=== PATIENT | male | born 1930 | race Caucasian/White ===

== ENCOUNTER 2019-04-30 17:09 | Inpatient (IN) ==
--- NOTE | 2019-04-30 18:59 | XRay Report ---
SINGLE VIEW CHEST CLINICAL HISTORY: Atypical chest pain. FINDINGS: 2 AP, portable, upright chest radiographs are obtained. Correlation is made with CT of the neck dated 04/27/2019. The examination is degraded by portable technique and patient rotation. A larg e mass lesion is seen in the right lower neck and involving the superior mediastinum. This causes lef tward deviation of the trachea and was better characterized on the recent CT of the neck. The heart i s enlarged noting atherosclerotic calcification of the thoracic aorta. The pulmonary vasculature is n oncongested. No airspace consolidation or large pleural effusion is identified. No pneumothorax is se en. The skeletal structures are osteopenic. The bony thorax is grossly intact. IMPRESSION: 1. Cardiomegaly with no acute cardiopulmonary abnormality. 2. A large mass lesion is again seen in the right lower neck extending into the superior mediastinum. This was better characterized on the recent CT of the neck. Electronically signed by: Stephen Stringer M.D. 04/30/2019 6:57 PM
[2019-04-30 19:15] LABS: Basophils # (auto) 0.03 K/uL (0-0.2); Basophils % (auto) 0.4 %; Eosinophils # (auto) 0.19 K/uL (0-0.5); Eosinophils % (auto) 2.5 %; Hematocrit (blood only) 41.7 % (42-52); Hemoglobin 13.5 g/dL (14.0-18.0); Immature Granulocytes # (auto) 0.01 K/uL (0.00-0.02); Immature Granulocytes % (auto) 0.1 %; Lymphocytes # (auto) 2.12 K/uL (1.2-3.4); Lymphocytes % (auto) 27.4 %; Mean Corpuscular Hemoglobin 32.2 pg (25-34); Mean Corpuscular Hgb Conc 32.4 g/dL (32-36); Mean Corpuscular Volume 99.5 fL (80-100); Mean Platelet Volume 11.8 fL (7.4-10.4); Monocytes # (auto) 1.17 K/uL (0.11-0.59); Monocytes % (auto) 15.1 %; Neutrophils # (auto) 4.23 K/uL (1.4-6.5); Neutrophils % (auto) 54.5 %; Platelet Count 137 K/uL (130-400); RDW Coefficient of Variation 15.9 % (11.5-14.5); RDW Standard Deviation 57.4 fL (36.4-46.3); Red Blood Count 4.19 M/uL (4.7-6.1); White Blood Count 7.75 K/uL (4.8-10.8)
[2019-04-30 19:25] LABS: INR 1.4 (0.9-1.1); Partial Thromboplastin Ratio 1.1; Partial Thromboplastin Time 28.5 Seconds (21.0-31.0); Prothrombin Time 14.3 Seconds (9.0-12.0)
[2019-04-30 19:32] LABS: Alanine Aminotransferase 25 U/L (12-78); Albumin Level 3.3 gm/dl (3.4-5.0); Aspartate Aminotransferase 36 U/L (15-37); BUN Creatinine Ratio 29.8 (10-20); Blood Urea Nitrogen 33 mg/dl (7-18); Calcium 8.7 mg/dl (8.5-10.1); Carbon Dioxide 28 mmol/L (21-32); Chloride 108 mmol/L (98-107); Est GFR (African American) 70.9; Est GFR (Non-African American) 61.1; Glucose 89 mg/dl (70-99); Lipase 64 U/L (73-393); Potassium 4.2 mmol/L (3.5-5.1); Sodium 140 mmol/L (136-145)
[2019-04-30 19:37] LABS: Albumin Globulin Ratio 1.1 (0.9-2); Alkaline Phosphatase 91 U/L (45-117); Bilirubin,Total 0.6 mg/dl (0.2-1); Globulin 3.1 gm/dl (2.5-4.0); Total Protein 6.4 gm/dl (6.4-8.2); Troponin I < 0.015 ng/ml (0-0.045)
--- NOTE | 2019-04-30 19:56 | Emergency Department Note ---
Entered by Tiffanie Case acting as a scribe for History of Present Illness General Chief complaint: Shoulder Pain Stated complaint: R SHOULDER PAIN, R ARM PAIN Time Seen by Provider: 04/30/19 18:15 Source: patient and family () History of Present Illness Onset (ago): month(s) (1) Location: upper extremity (shoulder) and right Radiation: other (right arm) Pain Consistency: + constant Maximum Pain Intensity: 9 Associated symptoms: + other (mass in his neck, right arm swelling) The patient is a 88 year old male who presents to the Emergency Room with complaints of constant right shoulder pain beginning one month ago. He reports the pain extending into his right arm and notes right arm swelling for the past week. The patient reports a mass in his neck for about a year. The patient's states she spoke with the patient's PCP, Dr. Dodd, who wants the patient admitted to the hospital due to cancer. She reports that the patient has had blood work, an MRI, and a biopsy within the last several days. Home Medications Home Medications Medication Instructions Recorded Confirmed Type doxazosin [Cardura] 1 mg PO DAILY 04/27/19 04/30/19 History hydrocodone-acetaminophen [Lorcet 1 tab PO Q6 PRN 04/27/19 04/30/19 History (hydrocodone)] levothyroxine 88 mcg PO DAILY 04/27/19 04/30/19 History memantine [Namenda] 10 mg PO BID 04/27/19 04/30/19 History Allergies Allergy/AdvReac Type Severity Reaction Status Date / Time No Known Allergies Allergy Unverified 04/30/19 18:48 Past Med/Surg History Medical History Mass of lateral neck (Acute) Dementia (Chronic) Thyroid disorder (Chronic) Surgical History No pertinent past surgical history Family History Other Family history non-contributory Social History marital status: Current Living Situation: Spouse current occupational status: retired Feels Safe at Home: Yes Smoking Status: Former smoker Review of Systems See HPI for pertinent positives & negatives. and A total of 10 systems reviewed and were otherwise negative Physical Exam Vital Signs Vital Signs - 24 hr 04/30/19 17:16 04/30/19 19:02 04/30/19 19:09 Temperature 36.7 C Temperature Source Oral Sepsis Recent Fever Within 48 Hours No Sepsis Action Taken by Nursing No Action Required Pulse Rate 74 57 L Respiratory Rate 20 12 Respiratory Effort / Characteristics Non-Labored Spontaneous Respiratory Depth Normal Blood Pressure 105/68 Blood Pressure Mean 80 Blood Pressure Position Sitting Pulse Oximetry 93 Oxygen Delivery Method Room Air Room Air 04/30/19 19:57 04/30/19 20:00 Temperature Temperature Source Sepsis Recent Fever Within 48 Hours Sepsis Action Taken by Nursing Pulse Rate 57 L 57 L Respiratory Rate 12 10 L Respiratory Effort / Characteristics Respiratory Depth Blood Pressure 126/70 Blood Pressure Mean 88 Blood Pressure Position Pulse Oximetry Oxygen Delivery Method CONSTITUTIONAL/VITAL SIGNS: Reviewed / noted above. GENERAL: Non-toxic in appearance. INTEGUMENTARY: Warm, dry, and [place]. HEAD: Normocephalic. EYES: without scleral icterus or trauma. ENT/OROPHARYNX: clear and moist. LYMPHADENOPATHY/NECK: Large mass in right neck. Supple without lymphadenopathy or meningismus. RESPIRATORY: Lungs clear and equal. CARDIOVASCULAR: Regular rate and rhythm. GI/ABDOMEN: Soft and nontender. No organomegaly or pulsatile mass. No rebound or guarding. Normal bowel sounds. EXTREMITIES: Warm and well perfused. Edema in the right arm, distal pulses intact. BACK: No CVA tenderness. NEUROLOGICAL: Intact without focal deficits. PSYCHIATRIC: normal affect. MUSCULOSKELETAL: Normally developed with good muscle tone. Course 1814: Past medical records reviewed. The patient was evaluated in room C01. A complete history and physical exam was performed. 2000: Upon reevaluation, I discussed findings and results with the patient and his family. They verbalized agreement of the treatment plan. I spoke with Dr. Martinez of the [facility]. The patient will be evaluated for further management and care. Medical Decision Making Differential Diagnosis Diferential diagnosis include DVT, vascular obstruction related to tumor, infection, cancer, arterial obstruction Medical Records Attestation: I reviewed the patient's medical records. Home Medications Current Medication List: was personally reviewed by me Laboratory Data Attestation: I reviewed the patient's lab results. Result diagrams: 04/30/19 19:02 04/30/19 19:02 Lab Results 04/30/19 04/30/19 04/30/19 Range/Units 19:02 19:02 19:02 WBC 7.75 (4.8-10.8) K/uL RBC 4.19 L (4.7-6.1) M/uL Hgb 13.5 L (14.0-18.0) g/dL Hct 41.7 L (42-52) % MCV 99.5 (80-100) fL MCH 32.2 (25-34) pg MCHC 32.4 (32-36) g/dL RDW Std Deviation 57.4 H (36.4-46.3) fL RDW Coeff of Rosie 15.9 H (11.5-14.5) % Plt Count 137 (130-400) K/uL MPV 11.8 H (7.4-10.4) fL Immature Gran % (Auto) 0.1 % Neut % (Auto) 54.5 % Lymph % (Auto) 27.4 % [place] % (Auto) 15.1 % Eos % (Auto) 2.5 % Baso % (Auto) 0.4 % Immature Gran # (Auto) 0.01 (0.00-0.02) K/uL Neut # (Auto) 4.23 (1.4-6.5) K/uL Lymph # (Auto) 2.12 (1.2-3.4) K/uL [place] # (Auto) 1.17 H (0.11-0.59) K/uL Eos # (Auto) 0.19 (0-0.5) K/uL Baso # (Auto) 0.03 (0-0.2) K/uL PT 14.3 H (9.0-12.0) Seconds INR 1.4 H (0.9-1.1) APTT 28.5 (21.0-31.0) Seconds PTT Ratio 1.1 Sodium 140 (136-145) mmol/L Potassium 4.2 (3.5-5.1) mmol/L Chloride 108 H (98-107) mmol/L Carbon Dioxide 28 (21-32) mmol/L Anion Gap 4.0 (3-11) BUN 33 H (7-18) mg/dl Creatinine 1.09 (0.6-1.4) mg/dl Est Cr Clr Drug Dosing Not Reportable Est GFR ( Amer) 70.9 Est GFR (Non-Af Amer) 61.1 BUN/Creatinine Ratio 29.8 H (10-20) Glucose 89 (70-99) mg/dl Calcium 8.7 (8.5-10.1) mg/dl Total Bilirubin 0.6 (0.2-1) mg/dl AST 36 (15-37) U/L ALT 25 (12-78) U/L Alkaline Phosphatase 91 (45-117) U/L Troponin I < 0.015 (0-0.045) ng/ml Total Protein 6.4 (6.4-8.2) gm/dl Albumin 3.3 L (3.4-5.0) gm/dl Globulin 3.1 (2.5-4.0) gm/dl Albumin/Globulin Ratio 1.1 (0.9-2) Lipase 64 L (73-393) U/L Imaging Data Radiologist's Impression: Radiology results as stated below per my review and the radiologist's interpretation: SINGLE VIEW CHEST CLINICAL HISTORY: Atypical chest pain. FINDINGS: 2 AP, portable, upright chest radiographs are obtained. Correlation is made with CT of the neck dated 04/27/2019. The examination is degraded by portable technique and patient rotation. A large mass lesion is seen in the right lower neck and involving the superior mediastinum. This causes leftward deviation of the trachea and was better characterized on the recent CT of the neck. The heart is enlarged noting atherosclerotic calcification of the thoracic aorta. The pulmonary vasculature is noncongested. No airspace consolidation or large pleural effusion is identified. No pneumothorax is seen. The skeletal structures are osteopenic. The bony thorax is grossly intact. IMPRESSION: 1. Cardiomegaly with no acute cardiopulmonary abnormality. 2. A large mass lesion is again seen in the right lower neck extending into the superior mediastinum. This was better characterized on the recent CT of the neck. Electronically signed by: Stephen Stringer M.D. 04/30/2019 6:57 PM ECG Data Attestation: I personally reviewed and interpreted this ECG as follows: Indication: other (arm swelling) Rate (beats per minute): 59 Rhythm: sinus bradycardia Findings: no PAC, no PVC, no ST elevation and no ectopy Blood Pressure Blood Pressure Findings: Low blood pressure Blood Pressure Disposition: further management by hospitalist MDM Narrative This is an 88-year-old male who presents to the ED with a chief complaint of right arm swelling and mass in his right neck. The patient had a CT scan of his neck on the here that showed a large mass that is likely lymphoma. It appears to obstruct the vasculature of the right arm. His physical exam is consistent with this as it shows edema to the right arm in addition to a obvious large mass of the right neck. The patient himself reports that this mass has been growing over the past year or so. The patient's states that he developed increased edema in his right arm just over the past week or 2. The patient was seen by Dr. Dodd earlier today. 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 The patient was sent here for admission for further work-up and evaluation and possible treatment options. The patient's EKG here shows a sinus bradycardia at a rate of 59. Chemistry panel reveals a BUN of 33 is otherwise unremarkable. Troponin was negative. Chest x-ray reveals a mass in the right lower neck that extends in the mediastinum that is better evaluated with the CT scan of the neck. An ultrasound was performed on the arm. The results are yet pending. I spoke with the hospitalist about the patient. He will be seeing the patient for further inpatient evaluation and care. Impression & Plan Mass of lateral neck, Arm edema, Lymphoma Discharge Plan Visit Data Chief Complaint: Shoulder Pain Stated Complaint: R SHOULDER PAIN, R ARM PAIN ED Provider: Shane Candelario Discharge Problem: Mass of lateral neck, Arm edema, Lymphoma Patient Disposition: Being Evaluated by Hospitalist Forms Stand Alone Forms: [facility] Prescriptions Prescriptions: No Action hydrocodone-acetaminophen [Lorcet (hydrocodone)] 5-325 mg tablet 1 tab PO Q6 PRN (Reason: Pain) RF: 0 doxazosin [Cardura] 1 mg tablet 1 mg PO DAILY RF: 0 levothyroxine 88 mcg tablet 88 mcg PO DAILY RF: 0 memantine [Namenda] 10 mg tablet 10 mg PO BID RF: 0 Referrals Referrals: Solomon Manrique DO [Primary Care Provider] - Discharge Problem: Lymphoma Qualifiers: Lymphoma type: unspecified type Lymphoma site: neck Qualified Code(s): 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 I confirm that the note above accurately reflects all work, treatment, procedures, and medical decision making performed by me.
--- NOTE | 2019-04-30 20:18 | Ultrasound Report ---
ULTRASOUND RIGHT UPPER EXTREMITY VENOUS CLINICAL HISTORY: Right arm swelling. COMPARISON STUDY: CT of the neck dated 04/27/2019. TECHNIQUE: Real-time, grayscale, and color Doppler sonography of the deep veins of the right upper ex tremity is performed. Compression and augmentation were utilized. FINDINGS: The right internal jugular vein is thrombosed. Occlusive deep venous thrombosis is identif ied within the right subclavian vein which extends in the cephalic vein. Nearly occlusive thrombus is also seen within the right axillary vein. The brachial vein and the basilic vein are patent. The rad ial and ulnar veins are clear. A large soft tissue mass is noted in the right lower neck and superior mediastinum. IMPRESSION: 1. A large mass lesion is again seen in the right lower neck end superior mediastinum. 2. There is thrombosis of the right internal jugular vein, the right subclavian vein, and the right a xillary vein. This is unchanged from the recent CT scan. 3. Superficial venous thrombus is noted within the cephalic vein. Electronically signed by: Stephen Stringer M.D. 04/30/2019 8:17 PM
[2019-04-30 20:54] LABS: Uric Acid 6.5 mg/dl (2.6-7.2)
[2019-04-30] MEDS ORDERED: IOVERSOL 100ml IV PRN (21:21)
--- NOTE | 2019-04-30 21:45 | History and Physical Report ---
DATE OF ADMISSION: 04/30/2019 CHIEF COMPLAINT: Right neck mass and swelling of the right upper extremity. HISTORY OF PRESENT ILLNESS: This is an 88-year-old male with past medical history significant for hypothyroidism, benign neoplasm of colon, BPH, glaucoma both eyes, mild dementia, was brought in because of right neck mass and right upper extremity swelling. The patient was here in the ER on 04/27/2019. At that time, the thought that they saw the mass 2 weeks ago, but the patient states this mass is there for last 6 months and also swelling in the right upper extremity for 6 months. He has some pain in the shoulder region. CT scan of the neck showed large conglomerate mass centered in the right supraclavicular region which extends up into the upper mediastinum, right pleura and right neck measuring 4.8 x 8.2 x 7.2 cm. The mass occludes the right internal jugular, subclavian and brachiocephalic veins and markedly narrows the left brachiocephalic vein, also there is right pleural effusion. Mass invades the right thyroid lobe with probable extension several right-sided neural foramen and foramen transversarium for the right vertebral artery which remains patent consistent with a neoplastic process or lymphoma . 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 The family also wanted to get him admitted in the hospital. The patient has some dementia. He knows his name, knows he is in the hospital, can tell his date of , but does not know today's date. Currently, no one is in the room. I tried to call his , the told to call the daughter. Daughter came to the hospital later. Says he is eating okay. He ambulates with a cane. Denies any headache, denies any chest pain. Denies any belly pain, no nausea, no vomiting. Normal bowel and bladder movements. No cough, no fever. Currently, resting comfortable and hemodynamically stable. ALLERGIES: No known drug allergies. PAST MEDICAL HISTORY: As mentioned above. PAST SURGICAL HISTORY: Colonoscopy, hemorrhoidectomy, cataract surgeries, tonsillectomy, adenoidectomy. MEDICATIONS: The patient is on hydrocodone/acetaminophen 5/325 mg one tablet every 6 hours p.r.n. for pain, Cardura 1 mg p.o. daily, Namenda 10 mg p.o. b.i.d., levothyroxine 88 mcg p.o. daily. FAMILY HISTORY: Significant for father had testicular cancer and Alzheimer's. Mother had CABG and diabetes. SOCIAL HISTORY: Former smoker, quit in 1979, smoked average of 0.1 pack a day for 20 years. Currently, no alcohol, no drug use. REVIEW OF SYSTEMS: As per HPI. Rest of review of symptoms is negative, but could not able to get detailed history as patient has some dementia. PHYSICAL EXAMINATION: GENERAL: The patient is old and frail, not in acute distress. VITAL SIGNS: Temperature 36.7, pulse 57, respiratory rate 20, blood pressure 126/70, oxygen 93% on room air. HEENT: No pallor, no icterus. Pupils equal, round, and reactive to light. NECK: Right sided neck mass seen which was somewhat fixed. No tenderness on palpation. Neck is supple. CARDIOVASCULAR: S1, S2 heard, regular rate and rhythm, no murmur, no gallop. RESPIRATORY SYSTEM: Normal AP diameter normal. No accessory muscle use. No wheezing, no crackles. ABDOMEN: Soft, bowel sounds present, nontender. No distention. CENTRAL NERVOUS SYSTEM: Alert and oriented x2. Obeys commands. Moves extremities. EXTREMITIES: No edema, no erythema. LABORATORY DATA: WBC 7.7, hemoglobin 13.5, hematocrit 41.7, platelets 137. PT 14.3, INR 1.4, APTT 28.1. Sodium 140, potassium 4.2, chloride 108, bicarbonate 28, BUN 33, creatinine 1.09, serum glucose 89, calcium 8.7, total bilirubin 0.6, AST 36, ALT 25, alkaline phosphatase 91. Troponin I less than 0.015. Albumin 3.3, lipase 64. IMAGING: Chest x-ray: Cardiomegaly with no acute cardiopulmonary abnormality. A large mass lesion is again seen in the right lower neck extending in superior mediastinum. Venous Doppler of the right upper extremity, large mass seen against the right lower neck and superior mediastinum. There is a thrombosed right internal jugular, subclavian and right axillary vein. This is unchanged from recent CT scan. Superficial venous thrombus is noted within the cephalic vein. EKG: Sinus bradycardia at a rate of 59, no acute ST changes seen. ASSESSMENT AND PLAN: This is an 88-year-old male who presents with right neck mass and right upper extremity swelling. 1. 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 Discussed with Oncology. We are also ordering LDH and uric acid levels. If uric acid level is significantly high, plan to transfer to [place], otherwise wait for the final pathology report and may need chemo and radiation and may need to start the treatment at [place], at that time. We will keep the patient in the hospital. Pain control and monitor the labs. We will also get CT of the chest and CT of abdomen and pelvis. Follow the results. 2. Right upper extremity swelling secondary to above and also ultrasound showing thrombosis. Will start on iv heparin and monitor. 3. History of benign prostatic hypertrophy. Continue his home Cardura. 4. Hypothyroidism. Continue Synthroid. 5. Dementia. Continue Namenda. 6. Deep venous thrombosis prophylaxis, IV heparin. 7. Disposition. Closely monitor in the medical floor. CODE STATUS: DNR as per the records, But daughter who is POA with his ok for full code if chance of recovery. MTDD
--- NOTE | 2019-04-30 21:52 | CT Scan Report ---
CT SCAN OF THE CHEST, ABDOMEN, AND PELVIS WITH IV CONTRAST CLINICAL HISTORY: Neck mass. COMPARISON STUDY: Chest x-ray dated 04/30/2019. CT of the neck dated 04/27/2019. TECHNIQUE: Following the IV administration of 92 of Optiray 320, CT scan of the chest, abdomen, and p melly was performed from the thoracic inlet to the proximal femora. Images are reviewed in the axial, sagittal, and coronal planes. IV contrast was administered without complication. A dose lowering t echnique was utilized adhering to the principles of ALARA. The examination is degraded by motion bereket fact, as well as by streak artifact from the right arm which could not be elevated above the chest or abdomen. CT DOSE: 482.49 mGy.cm FINDINGS: CHEST: Lower neck: A large mass lesion is again seen within the right supraclavicular region. This encases m ultiple vascular structures, invades the right lobe of the thyroid gland, and extends in the superior mediastinum. This encases and occludes the right internal jugular vein, the right subclavian vein, a nd the right innominate vein. There is marked narrowing of the left innominate vein which remains pat ent. This measures over 15 cm in maximum length. See report of neck CT dated 04/27/2019 for detailed discussion of the neck lesion. Thyroid: The right thyroid lobe is enlarged and heterogeneous. There is a 2.7 cm low-attenuation mass lesion in the right lobe, likely representing direct invasion from the neck mass. Thoracic aorta: There is mild atherosclerotic calcification of the thoracic aorta, which is normal in caliber and demonstrates standard 3-vessel arch anatomy. No dissection is seen. The mass lesion enca ses the right common carotid artery and the right subclavian artery which are widely patent. Pulmonary vasculature: The pulmonary trunk is normal in caliber. There are no filling defects identif ied in the central pulmonary vessels to indicate pulmonary embolus. Note that this examination was no t protocoled for evaluation of the pulmonary arteries. Heart: The heart is enlarged and without pericardial effusion. The coronary arteries are densely calc ified. Lungs and pleural spaces: Evaluation of the lung parenchyma is significantly degraded by motion artif act. There are small right and trace left pleural effusions with associated atelectasis. No airspace consolidation is seen typical for pneumonia. There are scattered calcified granulomas. There is pleur al extension of the right neck mass at the right apex. There is leftward deviation of the trachea. Th e trachea is patent. Secretions are noted in the right mainstem bronchus. Mediastinum: As above, a large mass in the right lower neck extends in the superior mediastinum. No m ediastinal adenopathy is seen. Dora: There are calcified hilar nodes. No hilar adenopathy is seen. Axillae: There is no axillary lymphadenopathy. Bony thorax: The skeletal structures are osteopenic. Degenerative change and mild hyperkyphosis are n oted in the thoracic spine. No lytic or blastic lesions are identified. This mass lesion in the neck likely encroaches on the right neural foramina in the lower cervical spine and at T1-T2. There is no CT evidence of encroachment upon the central spinal canal. Soft tissues: The patient is cachectic. ABDOMEN AND PELVIS: Liver: Evaluation of the liver is significantly degraded by streak artifact. The contrast-enhanced li lizbeth is normal in size, contour, and attenuation. There is no intrahepatic or ductal dilatation. The h epatic veins and portal veins are patent. Scattered cysts measure up to 1.[address] hepatic hypodensities also likely represent cysts but are too small for definitive characterizati on. Gallbladder: Unremarkable. Spleen: The spleen is diminutive, measuring up to 4.2 cm. Pancreas: Atrophic and grossly unremarkable. Adrenal glands: Unremarkable. Kidneys: The contrast enhanced kidneys demonstrate cortical atrophy and are without hydronephrosis. T he kidneys enhance symmetrically. Scattered subcentimeter hepatic hypodensities likely represent cyst s but are too small for definitive characterization. Abdominal vasculature: The abdominal aorta is normal in course and caliber noting mild to moderate at herosclerotic calcification. Bowel: There is moderate constipation. No bowel obstruction is seen. The appendix is not identified a nd reported surgically absent. Peritoneum: There is no intraperitoneal free air or abdominal ascites. Lymphadenopathy: None. Pelvic viscera: The prostate gland is mildly enlarged and heterogeneous noting median lobe hypertroph y. The bladder wall is thickened and trabeculated indicating chronic outlet obstruction. Small bladde r calculi are noted. Skeletal structures: The skeletal structures are osteopenic. No lytic or blastic lesions are seen. Th ere is moderate lumbosacral spondylosis. Advanced arthritic change is seen in the hips. IMPRESSION: 1. Streak and motion compromised examination. 2. There is a large mass lesion in the right lower neck with extensive local invasion into the superi or mediastinum, the pleural space at the right apex, several right-sided neural foramina, and the rig ht thyroid lobe. See report of CT of the neck dated 04/27/1940 detailed findings. 3. The mass lesion encases and occludes several venous structures as above. 4. There are small right and trace left pleural effusions with associated atelectasis. 5. Cardiomegaly. 6. There is no evidence of metastatic disease in the abdomen or pelvis. 7. Moderate constipation. 8. Bladder calculi. 9. Additional findings as above. Electronically signed by: Stephen Stringer M.D. 04/30/2019 9:50 PM
[2019-04-30] MEDS ORDERED: POLYETHYLENE (MIRALAX) 17 GM PACK PO PRN (22:15)
[2019-04-30] MEDS ORDERED: ACETAMINOPHEN 325 MG TAB PO PRN (22:15)
[2019-04-30] MEDS ORDERED: ONDANSETRON INJ 2 MG/ML 2 ML VIAL IV PRN (22:15)
[2019-04-30] MEDS ORDERED: HYDROCODONE/ACETAMOPHEN 5/325MG TAB PO PRN (22:30)
[2019-04-30] MEDS ORDERED: ENOXAPARIN INJ 40 MG/0.4 ML SYR SQ ONE (22:45)
[2019-04-30] MEDS: MEMANTINE HCL 10 MG TAB PO SCH (23:33)
[2019-04-30] MEDS: PATIENT'S HEIGHT AND/OR WEIGHT NEEDED SCH ×2 (23:36→23:49)
[2019-05-01] MEDS ORDERED: HEPARIN SODIUM/DEXTROSE 25,000 UNITS/500 ML BAG IV SCH (01:30)
[2019-05-01] MEDS: Heparin IV Standard *NO* Bolus IV SCH ×6 (02:46→15:32)
[2019-05-01 03:41] LABS: INR 1.6 (0.9-1.1); Partial Thromboplastin Ratio 1.3; Partial Thromboplastin Time 36.2 Seconds (21.0-31.0); Prothrombin Time 15.9 Seconds (9.0-12.0)
[2019-05-01 03:47] LABS: BUN Creatinine Ratio 33.2 (10-20); Calcium 8.2 mg/dl (8.5-10.1); Creatinine Clr Calc Pharmacy 52.7 ml/min; Est GFR (African American) 93.8; Est GFR (Non-African American) 80.9; Potassium 3.9 mmol/L (3.5-5.1)
[2019-05-01 03:54] LABS: Basophils # (auto) 0.03 K/uL (0-0.2); Basophils % (auto) 0.4 %; Eosinophils # (auto) 0.29 K/uL (0-0.5); Eosinophils % (auto) 3.6 %; Giant Platelets 1+; Hematocrit (blood only) 39.7 % (42-52); Hemoglobin 12.8 g/dL (14.0-18.0); Immature Granulocytes # (auto) 0.01 K/uL (0.00-0.02); Immature Granulocytes % (auto) 0.1 %; Lymphocytes # (auto) 2.33 K/uL (1.2-3.4); Lymphocytes % (auto) 28.7 %; Mean Corpuscular Hemoglobin 31.8 pg (25-34); Mean Corpuscular Hgb Conc 32.2 g/dL (32-36); Mean Corpuscular Volume 98.5 fL (80-100); Mean Platelet Volume 12.3 fL (7.4-10.4); Monocytes # (auto) 1.08 K/uL (0.11-0.59); Monocytes % (auto) 13.3 %; Neutrophils # (auto) 4.39 K/uL (1.4-6.5); Neutrophils % (auto) 53.9 %; Platelet Count 124 K/uL (130-400); Platelet Estimate Normal (Normal); RDW Coefficient of Variation 15.9 % (11.5-14.5); RDW Standard Deviation 57.1 fL (36.4-46.3); Red Blood Count 4.03 M/uL (4.7-6.1); White Blood Count 8.13 K/uL (4.8-10.8)
[2019-05-01] MEDS: LEVOTHYROXINE SODIUM 88 MCG TABLET PO SCH (05:46)
[2019-05-01] MEDS ORDERED: ACETAMINOPHEN 325 MG TAB PO PRN (07:47)
[2019-05-01] MEDS: MEMANTINE HCL 10 MG TAB PO SCH ×2 (08:20→21:04)
[2019-05-01] MEDS: DOXAZOSIN MESYLATE 1 MG TAB PO SCH (08:20)
--- NOTE | 2019-05-01 08:48 | Hospitalist Progress Note ---
Date of Service May 01, 2019 Subjective Daughter Ph No: [phone] Results & Data Vital Signs (Past 12 Hours) Vital Signs Temp Pulse Resp BP BP Pulse Ox 05/01/19 07:18 36.7 C 60 16 134/64 95 04/30/19 23:29 36.4 C L 59 L 18 150/77 H 93 04/30/19 22:16 36.8 C 60 20 155/79 H 94
[2019-05-01 09:53] LABS: Partial Thromboplastin Ratio 2.5
[2019-05-01 09:55] LABS: Partial Thromboplastin Time 66.4 Seconds (21.0-31.0)
--- NOTE | 2019-05-01 13:59 | Hospitalist Progress Note ---
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 Overall, a pure lymphomatous process is favored. Core biopsy or incisional biopsy (preferred) is required for further characterization of this unusual lesion. A high grade B-cell lymphoma FISH panel is pending for hopefully additional information and will be reported" -discussed with [facility] oncologist Dr. Shin Sotelo on 05/01/19 -will try to ask inpatient surgical consult services such as ENT service if core or incisional biopsy can be performed in hospital -patient does not appear to have respiratory compromise and breathing comfortable on room air and no apparent swallowing issues. 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 This is unchanged from the recent CT scan. -Superficial venous thrombus is noted within the cephalic vein and associated with right arm swelling -patient was started on heparin drip, to be transitioned from heparin drip to Lovenox 1 mg/kg every 12 hours for now while awaiting whether ENT services can be done as inpatient for core or incisional biospy of the neck Hypothyroidism -continue home dose Levothyroxine 88 mcg daily History of benign prostatic hypertrophy -Continue home Cardura. History of dementia -continue Namenda -Daughter Lorraine ([phone]) reported to hospitalist and piano case maker that she would like to have patient placed to nursing facility after hospital stay Subjective Patient laying in the bed. speaking in full sentences. breathing on room air. he needed assistance to sit up for posterior auscultation. right arm swelling but no acute pain. no chest pain. no abdomen pain. no vomiting. no headache. Physical Exam Constitutional: comfortable Eyes: PERRL, conjunctivae normal, anicteric sclerae EOM intact bilaterally ENMT: external ear and nose normal, oropharynx normal Neck: Thyroid: + thyroid mass (right neck mass that is firm and hard) Respiratory: normal respiratory effort, lungs clear to auscultation Cardiovascular: RRR, no murmur, no edema Gastrointestinal (Abdomen): normal bowel sounds, soft, nontender, no hepatosplenomegaly Musculoskeletal: Extremities: + upper extremity abnormal to inspection (right upper extremity swelling) Neurologic: PERRL, EOMI, accommodation nl, no face palsy, no dysarthria Psychiatric: Orientation: alert and cooperative Results & Data Vital Signs (Past 12 Hours) Vital Signs Temp Pulse Resp BP Pulse Ox 05/01/19 07:18 36.7 C 60 16 134/64 95 (1) Lymphoma Lymphoma site: neck Lymphoma type: unspecified type Qualified Code(s): C85.91 - Non-Hodgkin lymphoma, unspecified, lymph nodes of head, face, and neck
[2019-05-01] MEDS: ENOXAPARIN INJ 60 MG/0.6 ML SYR SQ SCH ×2 (14:19→21:05)
[2019-05-01] MEDS: QUETIAPINE FUMARATE 25 MG TABLET PO PRN (21:04)
[2019-05-01] MEDS ORDERED: ENOXAPARIN INJ 40 MG/0.4 ML SYR SQ SCH (22:00)
[2019-05-02 03:12] LABS: Basophils # (auto) 0.03 K/uL (0-0.2); Basophils % (auto) 0.3 %; Eosinophils # (auto) 0.35 K/uL (0-0.5); Eosinophils % (auto) 3.8 %; Hemoglobin 12.1 g/dL (14.0-18.0); Immature Granulocytes # (auto) 0.02 K/uL (0.00-0.02); Immature Granulocytes % (auto) 0.2 %; Lymphocytes # (auto) 2.53 K/uL (1.2-3.4); Lymphocytes % (auto) 27.1 %; Mean Corpuscular Hemoglobin 31.3 pg (25-34); Mean Corpuscular Hgb Conc 31.8 g/dL (32-36); Mean Corpuscular Volume 98.4 fL (80-100); Mean Platelet Volume 11.2 fL (7.4-10.4); Monocytes # (auto) 1.24 K/uL (0.11-0.59); Monocytes % (auto) 13.3 %; Neutrophils # (auto) 5.16 K/uL (1.4-6.5); Neutrophils % (auto) 55.3 %; Platelet Count 132 K/uL (130-400); RDW Coefficient of Variation 15.7 % (11.5-14.5); RDW Standard Deviation 56.8 fL (36.4-46.3); Red Blood Count 3.86 M/uL (4.7-6.1); White Blood Count 9.33 K/uL (4.8-10.8)
[2019-05-02 03:33] LABS: Albumin Level 2.7 gm/dl (3.4-5.0); BUN Creatinine Ratio 28.8 (10-20); Calcium 7.9 mg/dl (8.5-10.1); Creatinine Clr Calc Pharmacy 43.9 ml/min; Est GFR (African American) 82.6; Est GFR (Non-African American) 71.3; Potassium 3.9 mmol/L (3.5-5.1)
[2019-05-02 03:43] LABS: Bilirubin,Total 0.5 mg/dl (0.2-1); Globulin 2.7 gm/dl (2.5-4.0); Thyroid Stimulating Hormone 2.24 uIu/ml (0.300-4.500); Total Protein 5.4 gm/dl (6.4-8.2)
[2019-05-02] MEDS: LEVOTHYROXINE SODIUM 88 MCG TABLET PO SCH (06:49)
[2019-05-02] MEDS: DOXAZOSIN MESYLATE 1 MG TAB PO SCH (08:48)
[2019-05-02] MEDS: MEMANTINE HCL 10 MG TAB PO SCH ×2 (08:48→21:15)
[2019-05-02] MEDS: ENOXAPARIN INJ 60 MG/0.6 ML SYR SQ SCH ×2 (10:05→21:15)
--- NOTE | 2019-05-02 10:20 | Hospitalist Progress Note ---
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 Overall, a pure lymphomatous process is favored. Core biopsy or incisional biopsy (preferred) is required for further characterization of this unusual lesion. A high grade B-cell lymphoma FISH panel is pending for hopefully additional information and will be reported" -discussed with [facility] oncologist Dr. Shin Sotelo on 05/01/19 -Dr. Carlson from [facility] ENT services asked to evaluate the patient in hospital. Patient did not give consent to Dr. Carlson for biopsy. 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 This is unchanged from the recent CT scan. -Superficial venous thrombus is noted within the cephalic vein and associated with right arm swelling -patient was started on heparin drip, and transitioned from heparin drip to Lovenox 1 mg/kg every 12 hours starting on 05/02/19 -continue Lovenox 60 mg q12 hours Hypothyroidism -continue home dose Levothyroxine 88 mcg daily History of benign prostatic hypertrophy -Continue home Cardura. History of dementia -continue Namenda -behavioral health consult requested to evaluate medical decision making capacity in context of dementia which the patient's daughter also agrees to -Daughter Lorraine ([phone]) is power of commercial attorney and reported to hospitalist and telehealth case manager that she would like to have patient placed to nursing facility after hospital stay on Friday05/01/19 -after further discussions with patient's daughter on patient's limited cooperation in regards to making the diagnosis, and of the potential side effects of radiation or chemotherapy treatments in this elderly gentleman with invasive neck cancer, hospitalist discussed about potential palliative care evaluations in case of need for hospice. Patient's daughter and family members will plan on coming on 05/02/19 to discuss with physician and patient in person. Subjective Patient reports good sleep. breathing on room air. he was able to eat his meals. no swallowing issues reported. denies acute pain. no chest pain. no abdominal pain. no vomiting. patient was explained about Lovenox injections to prevent arm swelling from getting worse. Physical Exam Constitutional: comfortable Eyes: PERRL, conjunctivae normal, anicteric sclerae EOM intact bilaterally ENMT: external ear and nose normal, oropharynx normal Neck: Thyroid: + thyroid mass (right neck mass that is firm and hard) Respiratory: normal respiratory effort, lungs clear to auscultation Cardiovascular: RRR, no murmur, no edema Gastrointestinal (Abdomen): normal bowel sounds, soft, nontender, no hepatosplenomegaly Musculoskeletal: Extremities: + upper extremity abnormal to inspection (right upper extremity swelling) Neurologic: PERRL, EOMI, accommodation nl, no face palsy, no dysarthria Psychiatric: Orientation: alert and cooperative Results & Data Vital Signs (Past 12 Hours) Vital Signs Temp Pulse Resp BP Pulse Ox 05/02/19 07:46 36.4 C L 62 16 120/73 93 05/01/19 22:53 36.9 C 72 18 118/70 95 (1) Lymphoma Lymphoma site: neck Lymphoma type: unspecified type Qualified Code(s): C85.91 - Non-Hodgkin lymphoma, unspecified, lymph nodes of head, face, and neck
--- NOTE | 2019-05-02 10:46 | ENT Consultation ---
Date of Consultation May 02, 2019 Assessment & Plan (1) Mass of lateral neck: Patient declined biopsy at present, would have to eval. of his mental status if family insists on biopsy which I can perform later this week History of Present Illness Reason for Consultation: right neck mass Attending Physician: Pravin Brooks MD History of Present Illness 88 yo with large right neck and mediastinal mass occluding right jugular and subclavian veins, needle showed possible lymphoma, at present patient is declining further invasive biopsy or treatment Allergies Allergy/AdvReac Type Severity Reaction Status Date / Time No Known Allergies Allergy Unverified 04/30/19 18:48 Home Medications Home Medications Medication Instructions Recorded Confirmed Type doxazosin [Cardura] 1 mg PO DAILY 04/27/19 04/30/19 History hydrocodone-acetaminophen [Lorcet 1 tab PO Q6 PRN 04/27/19 04/30/19 History (hydrocodone)] levothyroxine 88 mcg PO DAILY 04/27/19 04/30/19 History memantine [Namenda] 10 mg PO BID 04/27/19 04/30/19 History Patient History Medical History Mass of lateral neck (Acute) Dementia (Chronic) Thyroid disorder (Chronic) Surgical History No pertinent past surgical history Family History Other Family history non-contributory Social History Preferred Language: Georgian Communication Ability: Effective Tax Analyst Required: No Beliefs That Will Affect Care: None marital status: Current Living Situation: Alone current occupational status: retired Other Information That Helps Us Care for You: No Feels Safe at Home: Yes Safety Concerns: Feels Safe At This Time Smoking Status: Former smoker Do You Dip or Chew Tobacco: No ; Second Hand Exposure: Yes ; Hx Alcohol Use: No Hx Substance Use: No Physical Exam Constitutional: + ill appearing Eyes: PERRL, conjunctivae normal, anicteric sclerae ENMT: external ear and nose normal, oropharynx normal Neck: + tracheal deviation (left) Thyroid: + thyroid mass (right thyroid with extension into level II to V matted nodes, firm fixed, m) Results & Data Vital Signs (Past 12 Hours) Vital Signs Temp Pulse Resp BP Pulse Ox 05/02/19 07:46 36.4 C L 62 16 120/73 93 05/01/19 22:53 36.9 C 72 18 118/70 95 PG Care Time/CCT Total # of Minutes Spent Total Time Spent with Patient: Total time spent is greater than 50% in coordination of care (as documented) at patient's floor/unit and/or counseling patient:
--- NOTE | 2019-05-02 17:26 | Psychiatric Consultation ---
Date of Consultation May 02, 2019 Impression / Recommendations Impression Patient is a 88yo with multiple medical problems to include dementia and new dx of lymphoma. He has declined biopsy which would preclude further focussed care. When asessing his cognition it is poor, he is showing evidence of dementia with poor memory and limited executive functioning on clock drawing. He is having sundowning and confusion in the evenings. When assessing his capacity he is able to state he understands he has a cancer, but is not able to communicate a consistent choice as he seems to spontaneously announce he does not want biopsy and treatment, but when discussing biopsy and r/b he seems to vasillate and then changes his mind again. I beleive his dementia is impairing his memory to such a significant degree that it is impairing his capacity in this medical decision. I would recommend use of a POA at this time, and that POA consider father's thoughts as they make their decision. I do not see him regaining sufficient memory/cognitive ability to regain capacity for this decision in the future. IN that dtr has already stated she declines the biopsy and palliative care will be called. My request from palliative care is a discussion of code status given there is a discrepancy between patient's previously signed DNR and dtr's verbalized thoughts in conversation with office administrative assistant. THis of course will be influenced if/once patient is enrolled in palliative care services. CPT Code 56947 Psych History Chief Complaint "I am happy to talk with you". History of Present Illness The patient is a 88yo male with multiple medical concerns to include hypothyroidism, hx of BPH, thromboembolism, and dementia who was dx with aggressive lymphoma after admission on 04/30/19 for growing right neck mass that was impeding flow in his right arm causing pain and swelling. Internal medicine provider Dr Lowe noted the next step would be for second biopsy to further characterize the cell lineage of the malignancy to further inform treatment. THe patient declined further biopsy but given dementia Dr Lowe was asking psychiatry consult to assess capacity to decline. IN the interim our [facility] nurse liaison has interveiwed the patient and spoken with Dr Lowe. THere have been conversations wtih patient's daughter who is named POA if patient is deemed not to have capacity. She is in agreement with her father's decision not to pursue further biopsy and treatment and agrees to palliative care consult. She also is asking that pateint be considered for residential placement. His clock drawing if very limited at the bedside (has [employer] [place] [employer] [place] and all the numbers with some assemeblance of loose symmetry, but has mu ltiple hands four or more between the 2-3 not arrows, and a tic mahesh above the 12) This provider did meet with patient's nurse prior to assessment and nursing notes patient is having sundowning with some parnoid confusion at nights. He was apparently started on low dose seroquel in the hospital for agitation q6h prn 12.5mg but to date has been verbally redirectable. He has been pleasant in the day, but forgetful. He gives socially vague answers to questions asked. Met with patient at the bedside. He is oriented to person but does not recall place. He does not recall the year or day or date. He is aware he is forgetful and discusses this openly and repeats this several times in the interveiw. He does know he is in the hospital for this mass, with time he is able to reason that it is cancer but does not have a memory of being told such. He does not recall what the possible options are regarding intervention or no intervention but does spontaneously initially state that "I am old, I have lived a longer life than I expected, and I don't want to go through all of that, I think we should leave it be." He does recognize that this will lead to progression of the cancer and . He does not have good working cognition for the role of a biopsy and when discussing he seems suggestible to "maybe we should do that" but is not able to recall risks and benefits. THis provider explained to the best of my ablity the risks and benefits. Within a few minutes he could not retain this information or repeat it and could not manipulate the information. He then vascillated and states "I will do whatever you think I should do." Provider noted to him that because his memory is limited and he has trouble keeping the information and then keeping a firm decision that I was going to recommend that he and his dtr talk and then his dtr make the decision and be the one to communicate this choice to the medical team. He noted "that is a good way to go about it" Of note in the internal medicine note patient is DNR, but there is a comment that dtre and would desire full code if there was a chance the patient could recover Past Psychiatric History Previous Psych History: dementia on memantine, no formal psychiatric history prior Allergies Allergy/AdvReac Type Severity Reaction Status Date / Time No Known Allergies Allergy Unverified 04/30/19 18:48 Home Medications Home Medications Medication Instructions Recorded Confirmed Type doxazosin [Cardura] 1 mg PO DAILY 04/27/19 04/30/19 History hydrocodone-acetaminophen [Lorcet 1 tab PO Q6 PRN 04/27/19 04/30/19 History (hydrocodone)] levothyroxine 88 mcg PO DAILY 04/27/19 04/30/19 History memantine [Namenda] 10 mg PO BID 04/27/19 04/30/19 History Personal History Living Arrangements Comments: lives in his own home and drives Childhood: ws in the [employer] 8 years, 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 retired 25-30years. He is , he has a dtr. HIs and dtr would be his POA's if he did not have capacity. He trusts his dtr, he has 2 sisters one older and 1 younger still living. He quit smoking in 1979 Beliefs That Will Affect Care: None Patient History Medical History Mass of lateral neck (Acute) Dementia (Chronic) Thyroid disorder (Chronic) Surgical History No pertinent past surgical history Family History Other Family history non-contributory Social History Preferred Language: Mosotho Communication Ability: Effective Well Head Pumper Required: No Beliefs That Will Affect Care: None marital status: Current Living Situation: Alone current occupational status: retired Other Information That Helps Us Care for You: No Feels Safe at Home: Yes Safety Concerns: Feels Safe At This Time Smoking Status: Former smoker Do You Dip or Chew Tobacco: No ; Second Hand Exposure: Yes ; Hx Alcohol Use: No Hx Substance Use: No Physical Exam Vital Signs (Past 24 Hours): Last Vital Signs Temp 36.8 C 05/02/19 15:08 Pulse 68 05/02/19 15:08 Resp 18 10/20/19 15:08 BP 107/62 05/02/19 15:08 Pulse Ox 94 05/02/19 15:08 Results & Data Medications Administered Doxazosin Mesylate (Cardura) 1 mg PO DAILY [facility] Stop: 05/31/19 08:59 Last Admin: 05/02/19 08:48 Dose: 1 mg Documented by: [id number] Admin: 05/01/19 08:20 Dose: 1 mg Documented by: [id number] Enoxaparin Sodium (Lovenox) 60 mg SQ Q12@1000,2200 [facility] Stop: 05/31/19 13:14 Last Admin: 05/02/19 10:05 Dose: 60 mg Documented by: [id number] Admin: 05/01/19 21:05 Dose: 60 mg Documented by: [id number] Admin: 05/01/19 14:19 Dose: 60 mg Documented by: [id number] Levothyroxine Sodium (Synthroid) 88 mcg PO DAILYBB [facility] Stop: 05/31/19 06:29 Last Admin: 05/02/19 06:49 Dose: Not Given Documented by: [id number] Admin: 05/01/19 05:46 Dose: 88 mcg Documented by: [id number] Memantine (Namenda) 10 mg PO BID [facility] Stop: 05/30/19 22:14 Last Admin: 05/02/19 08:48 Dose: 10 mg Documented by: [id number] Admin: 05/01/19 21:04 Dose: 10 mg Documented by: [id number] Admin: 05/01/19 08:20 Dose: 10 mg Documented by: [id number] Admin: 04/30/19 23:33 Dose: 10 mg Documented by: [id number] Quetiapine Fumarate (Seroquel) 12.5 mg PO Q6H PRN PRN Reason: Anxiety/Agitation Stop: 05/31/19 19:59 Last Admin: 05/01/19 21:04 Dose: 12.5 mg Documented by: [id number] Coding Level of Care Code 16092 U Intl Hosp Care Lvl 2
[2019-05-02] MEDS: TRAMADOL HCL 50 MG TABLET PO PRN (19:26)
[2019-05-02] MEDS: QUETIAPINE FUMARATE 25 MG TABLET PO PRN (21:46)
[2019-05-03] MEDS: TRAMADOL HCL 50 MG TABLET PO PRN ×2 (04:13→17:52)
[2019-05-03] MEDS: LEVOTHYROXINE SODIUM 88 MCG TABLET PO SCH (07:03)
[2019-05-03] MEDS: DOXAZOSIN MESYLATE 1 MG TAB PO SCH (09:44)
[2019-05-03] MEDS: MEMANTINE HCL 10 MG TAB PO SCH (09:45)
[2019-05-03] MEDS: ENOXAPARIN INJ 60 MG/0.6 ML SYR SQ SCH (09:45)
--- NOTE | 2019-05-03 10:52 | Palliative Care Consultation ---
Date of Consultation May 03, 2019 Assessment & Plan (1) Palliative care encounter: This is an 88 year old male who presented to the [facility] from outpatient clinic following a FNA of a neck mass that was discovered approximately six months ago. A CT scan of his neck was performed and revealed a large conglomerate mass centered in the right supraclavicular region which extends up into the upper mediastinum, right pleura and right neck measuring 4.8 x 8.2 x 7.2 cm. The mass occludes the Right IJ, subclavian and brachiocephalic veins and markedly narrows the left brachiocephalic vein. The mass invades the right thyroid lobe with probable extension several right-sided neural foramen. The patient also has a PMH that includes BPH, Dementia, Hypothyroidism, and early stages dementia. The patients daughter, Lorraine, is the patients POA and has determined that they were not interested in further work up or invasive procedures. The family has decided to transition the patients care to Hospice focus. Palliative Care consulted to discuss goals of care with the family. -I met with the patient in room 461-1. Patient was very pleasant in our conversation. Patient was able to tell me where he was, who he was and why he was in the hospital. -He was able to tell me that his and him live separately but get along well. -The patient was not able to discuss details regarding his complex medical illness, but does know he has a mass in his neck and "it doesn't look good' -The patient does live alone in [place]. He was able to tell me his and daughters names. -I did call Lorraine, the patients daughter and POA. -She confirmed that the family does not want any invasive measures taken with his care. The plan is for Lorraine (who is taking time away from work and has no other commitments) and Corey to move into the patients home and care for him with Hospice services. -I discussed code status as he was listed as a full code and she confirmed to transition him to DNR/DNI which I changed in the computer. - I discussed and completed a POLST form with the daughter over the phone indicating DNR/DNI, comfort measures only when discharged, trial abx, and no artificial nutrition/hydration. She will sign the POLST when she comes in this evening around 1700. -I spoke with Case management who will reach out to discuss hospice agency choice. -The patient is not having any dysphagia, dyspnea, or pain at this time, so I am in support of him returning home and having Hospice services meet him and the patients family at home tomorrow. No equipment needs are imperative prior to discharge. -Case management to provide discussion regarding agency choice and also a SNF for back up in case the care becomes too great for them to manage at home. -Anticipated discharge later today per discussion with family. Hospitalist updated with above. -PPS: 30% (2) Lymphoma: Lymphoma site: neck Lymphoma type: unspecified type Qualified Code(s): C85.91 - Non-Hodgkin lymphoma, unspecified, lymph nodes of head, face, and neck (3) Mass of lateral neck: Supervising Physician Co-Signing Physician Notes Chart reviewed, patient seen and examined-no family at bedside. Collaborated with EZEQUIEL Garrido PE: Patient awake and alert, no acute distress. Patient denies difficulty swallowing or taking a deep breath HEENT: EOMI, hearing within normal limits Neck: Obvious large mass right side of neck-nontender Respiratory: Unlabored, clear breath sounds CV: Regular rate, no lower extremity edema. Right upper extremity pitting edema Abdomen: Soft, nontender Neuro: Alert and oriented Agree with above note, assessment and plan as per EZEQUIEL Garrido. Patient to return home with family under hospice care. History of Present Illness Reason for Consultation: Goals of care Requesting Physician: Dr. Brooks Attending Physician: Pravin Brooks MD History of Present Illness This is an 88 year old male who presented to the [facility] from outpatient clinic following a FNA of a neck mass that was discovered approximately six months ago. A CT scan of his neck was performed and revealed a large conglomerate mass centered in the right supraclavicular region which extends up into the upper mediastinum, right pleura and right neck measuring 4.8 x 8.2 x 7.2 cm. The mass occludes the Right IJ, subclavian and brachiocephalic veins and markedly narrows the left brachiocephalic vein. The mass invades the right thyroid lobe with probable extension several right-sided neural foramen. The patient also has a PMH that includes BPH, Dementia, Hypothyroidism, and early stages dementia. The patients daughter, Lorraine, is the patients POA and has determined that they were not interested in further work up or invasive procedures. The family has decided to transition the patients care to Hospice focus. Palliative Care consulted to discuss goals of care with the family. Please see A/P for further details. Thank you kindly for involving the palliative care team with this patient. We will follow as needed. Allergies Allergy/AdvReac Type Severity Reaction Status Date / Time No Known Allergies Allergy Unverified 04/30/19 18:48 Home Medications Home Medications Medication Instructions Recorded Confirmed Type doxazosin [Cardura] 1 mg PO DAILY 04/27/19 04/30/19 History hydrocodone-acetaminophen [Lorcet 1 tab PO Q6 PRN 04/27/19 04/30/19 History (hydrocodone)] levothyroxine 88 mcg PO DAILY 04/27/19 04/30/19 History memantine [Namenda] 10 mg PO BID 04/27/19 04/30/19 History rivaroxaban [Xarelto] 15 mg PO BID 21 Days #42 tab 05/03/19 Rx rivaroxaban [Xarelto] 20 mg PO DAILY 30 Days #30 tab 05/03/19 Rx Patient History Medical History Mass of lateral neck (Acute) Dementia (Chronic) Thyroid disorder (Chronic) Surgical History No pertinent past surgical history Family History Other Family history non-contributory Social History Preferred Language: Upper Sorbian Communication Ability: Effective Maintenance Scheduler Required: No Beliefs That Will Affect Care: None marital status: Current Living Situation: Alone current occupational status: retired Other Information That Helps Us Care for You: No Feels Safe at Home: Yes Safety Concerns: Feels Safe At This Time Smoking Status: Former smoker Do You Dip or Chew Tobacco: No ; Second Hand Exposure: Yes ; Hx Alcohol Use: No Hx Substance Use: No Review of Systems Review of Systems: All systems reviewed & are unremarkable except as noted in HPI & below Physical Exam Constitutional: well developed and + thin; not in distress Eyes: PERRL, conjunctivae normal, anicteric sclerae Neck: trachea midline, + anterior neck swelling, + submandibular swelling and + thick neck Thyroid: + thyroid mass (Right neck with softball sized bulging mass, protruding anteriorly. ) Respiratory: normal respiratory effort, lungs clear to auscultation (on room air) Cardiovascular: Rate/Rhythm: regular rate and regular rhythm Extremities: normal capillary refill and + edema (left arm edematous and limb restricted. swe lling from shoulder to fingertip) Gastrointestinal (Abdomen): normal bowel sounds, soft, nontender, no hepatosplenomegaly Skin: no rashes, warm and dry Genitourinary: voiding Lymphatic: + lymphedema (Right arm with lymphedema from shoulder to finger tips) Results & Data Vital Signs (Past 12 Hours) Vital Signs Pulse Resp BP Pulse Ox 05/03/19 07:22 62 18 125/66 95 PG Care Time/CCT Total # of Minutes Spent Total Time Spent with Patient: Total time spent is greater than 50% in coordination of care (as documented) at patient's floor/unit and/or counseling patient:100 Prolonged Care Time Prolonged Care Time: Yes Total Prolonged Care Time: 30 Time Spent Midlevel Total time spent 100 minutes with > 50% of that time spent assessing the patient, discussing goals of care with the patient and family, along with discussing discharge plans with IDT. Critical Care Time Prolonged Care Time Prolonged Care Time: Yes Total Prolonged Care Time: 30 100
--- NOTE | 2019-05-03 13:39 | Hospitalist Progress Note ---
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 Overall, a pure lymphomatous process is favored. Core biopsy or incisional biopsy (preferred) is required for further characterization of this unusual lesion. A high grade B-cell lymphoma FISH panel is pending for hopefully additional information and will be reported" -discussed with [facility] oncologist Dr. Shin Sotelo on 05/01/19 -Dr. Carlson from [facility] ENT services asked to evaluate the patient in hospital. Patient did not give consent to Dr. Carlson for biopsy. -psychiatry consult has evaluated patient's medical decision making capacity and that patient found to not be able to make medical decisions and that it was reasonable for patient's daughter as power of complex case manager to make medical descisions for him -after further discussions with patient's daughter Daughter Lorraine ([phone]) on patient's limited cooperation in regards to making the diagnosis, and of the potential side effects of radiation or chemotherapy treatments in this elderly gentleman with invasive neck cancer, hospitalist discussed about potential palliative care evaluations in case of need for hospice. -discharge to home with home hospice on 05/03/19 -Palliative care following the patient and will have POLST form signed by patient's daughter Lorraine indicating DNR/DNI, comfort measures only when discharged, trial abx, and no artificial nutrition/hydration before patient is discharge to home with home hospice services. 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 This is unchanged from the recent CT scan. -Superficial venous thrombus is noted within the cephalic vein and associated with right arm swelling -patient was started on heparin drip, and transitioned from heparin drip to Lovenox 1 mg/kg every 12 hours starting on 05/02/19 -patient to be discharged on Xarelto 15 mg twice a day for 21 days with food and starting on May 25, 2019 should take Xarelto 20 mg daily with food; discharge medication prescription sent electronically to [facility] Address: [address] [place] [address] -patient should follow up with family medical doctor 05/05/2019 2:00 PM Provider Solomon Manrique DO at [facility] in regards to anticoagulation management. Given that patient has blood clots (thrombosis of the right internal jugular vein, the right subclavian vein, and the right axillary vein. This is unchanged from the recent CT scan. Superficial venous thrombus is noted within the cephalic vein and associated with right arm swelling), patient should be on blood thinners for at least 3 months and may likely need to life long given diagnosis of cancer (lymphoma) unless patient has other hospice care goals Hypothyroidism -continue home dose Levothyroxine 88 mcg daily History of benign prostatic hypertrophy -Continue home Cardura. 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 No acute pain. breathing on room air. Discussed with patient in brief that his daughter plans to grape picker him up later today for hospital discharge and that they had made family decision on not pursing treatment for the neck for which patient affirms. Patient are counseled that he will need to take oral blood thinners to prevent further swelling of right arm Physical Exam Constitutional: comfortable Eyes: PERRL, conjunctivae normal, anicteric sclerae EOM intact bilaterally ENMT: external ear and nose normal, oropharynx normal Neck: Thyroid: + thyroid mass (right neck mass that is firm and hard) Respiratory: normal respiratory effort, lungs clear to auscultation Cardiovascular: RRR, no murmur, no edema Gastrointestinal (Abdomen): normal bowel sounds, soft, nontender, no hepatosplenomegaly Musculoskeletal: Extremities: + upper extremity abnormal to inspection (right upper extremity swelling) Neurologic: PERRL, EOMI, accommodation nl, no face palsy, no dysarthria Psychiatric: Orientation: alert and oriented to person Results & Data Vital Signs (Past 12 Hours) Vital Signs Pulse Resp BP Pulse Ox 05/03/19 07:22 62 18 125/66 95 (1) Lymphoma Lymphoma site: neck Lymphoma type: unspecified type Qualified Code(s): C85.91 - Non-Hodgkin lymphoma, unspecified, lymph nodes of head, face, and neck
--- NOTE | 2019-05-03 14:00 | Discharge Summary ---
Date of Service May 03, 2019 Admission HPI Per Admitting Provider DATE OF ADMISSION: 04/30/2019 CHIEF COMPLAINT: Right neck mass and swelling of the right upper extremity. HISTORY OF PRESENT ILLNESS: This is an 88-year-old male with past medical history significant for hypothyroidism, benign neoplasm of colon, BPH, glaucoma both eyes, mild dementia, was brought in because of right neck mass and right upper extremity swelling. The patient was here in the ER on 04/27/2019. At that time, the thought that they saw the mass 2 weeks ago, but the patient states this mass is there for last 6 months and also swelling in the right upper extremity for 6 months. He has some pain in the shoulder region. CT scan of the neck showed large conglomerate mass centered in the right supraclavicular region which extends up into the upper mediastinum, right pleura and right neck measuring 4.8 x 8.2 x 7.2 cm. The mass occludes the right internal jugular, subclavian and brachiocephalic veins and markedly narrows the left brachiocephalic vein, also there is right pleural effusion. Mass invades the right thyroid lobe with probable extension several right-sided neural foramen and foramen transversarium for the right vertebral artery which remains patent consistent with a neoplastic process or lymphoma . 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 The family also wanted to get him admitted in the hospital. The patient has some dementia. He knows his name, knows he is in the hospital, can tell his date of , but does not know today's date. Currently, no one is in the room. I tried to call his , the told to call the daughter. Daughter came to the hospital later. Says he is eating okay. He ambulates with a cane. Denies any headache, denies any chest pain. Denies any belly pain, no nausea, no vomiting. Normal bowel and bladder movements. No cough, no fever. Currently, resting comfortable and hemodynamically stable. Psychiatry History and Physical (The patient is a 88yo male with multiple medical concerns to include hypothyroidism, hx of BPH, thromboembolism, and dementia who was dx with aggressive lymphoma after admission on 04/30/19 for growing right neck mass that was impeding flow in his right arm causing pain and swelling. Internal medicine provider Dr Lowe noted the next step would be for second biopsy to further characterize the cell lineage of the malignancy to further inform treatment. THe patient declined further biopsy but given dementia Dr Lowe was asking psychiatry consult to assess capacity to decline. IN the interim our [facility] nurse liaison has interveiwed the patient and spoken with Dr Lowe. THere have been conversations wtih patient's daughter who is named POA if patient is deemed not to have capacity. She is in agreement with her father's decision not to pursue further biopsy and treatment and agrees to palliative care consult. She also is asking that pateint be considered for detention placement. His clock drawing if very limited at the bedside (has [place] and all the numbers with some assemeblance of loose symmetry, but has multiple hands four or more between the 2-3 not arrows, and a tic mahesh above the 12) This provider did meet with patient's nurse prior to assessment and nursing notes patient is having sundowning with some parnoid confusion at nights. He was apparently started on low dose seroquel in the hospital for agitation q6h prn 12.5mg but to date has been verbally redirectable. He has been pleasant in the day, but forgetful. He gives socially vague answers to questions asked. Met with patient at the bedside. He is oriented to person but does not recall place. He does not recall the year or day or date. He is aware he is forgetful and discusses this openly and repeats this several times in the interveiw. He does know he is in the hospital for this mass, with time he is able to reason that it is cancer but does not have a memory of being told such. He does not recall what the possible options are regarding intervention or no intervention but does spontaneously initially state that "I am old, I have lived a longer life than I expected, and I don't want to go through all of that, I think we should leave it be." He does recognize that this will lead to progression of the cancer and . He does not have good working cognition for the role of a biopsy and when discussing he seems suggestible to "maybe we should do that" but is not able to recall risks and benefits. THis provider explained to the best of my ablity the risks and benefits. Within a few minutes he could not retain this information or repeat it and could not manipulate the information. He then vascillated and states "I will do whatever you think I should do." Provider noted to him that because his memory is limited and he has trouble keeping the information and then keeping a firm decision that I was going to recommend that he and his dtr talk and then his dtr make the decision and be the one to communicate this choice to the medical team. He noted "that is a good way to go about it" Of note in the internal medicine note patient is DNR, but there is a comment that dtre and would desire full code if there was a chance the patient could recover) Admission Exam Per Admitting Provider GENERAL: The patient is old and frail, not in acute distress. VITAL SIGNS: Temperature 36.7, pulse 57, respiratory rate 20, blood pressure 126/70, oxygen 93% on room air. HEENT: No pallor, no icterus. Pupils equal, round, and reactive to light. NECK: Right sided neck mass seen which was somewhat fixed. No tenderness on palpation. Neck is supple. CARDIOVASCULAR: S1, S2 heard, regular rate and rhythm, no murmur, no gallop. RESPIRATORY SYSTEM: Normal AP diameter normal. No accessory muscle use. No wheezing, no crackles. ABDOMEN: Soft, bowel sounds present, nontender. No distention. CENTRAL NERVOUS SYSTEM: Alert and oriented x2. Obeys commands. Moves extremities. EXTREMITIES: No edema, no erythema. 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); Thromboembolism; Hypothyroidism; Dementia Discharge Exam Constitutional comfortable Eyes PERRL, conjunctivae normal, anicteric sclerae EOM intact bilaterally ENMT external ear and nose normal, oropharynx normal Neck Thyroid: + thyroid mass (right neck mass that is firm and hard) Respiratory normal respiratory effort, lungs clear to auscultation Cardiovascular RRR, no murmur, no edema Gastrointestinal (Abdomen) normal bowel sounds, soft, nontender, no hepatosplenomegaly Musculoskeletal Extremities: + upper extremity abnormal to inspection (right upper extremity swelling) Neurologic PERRL, EOMI, accommodation nl, no face palsy, no dysarthria Psychiatric Orientation: alert and oriented to person Discharge Data Allergies Allergy/AdvReac Type Severity Reaction Status Date / Time No Known Allergies Allergy Unverified 04/30/19 18:48 Consultations 04/30/19 20:13 ED Decision to Admit Stat 04/30/19 22:15 Consult Case Management - Discharge Planning Routine 05/01/19 08:00 Consult Hematology Routine 05/01/19 15:47 Consult Otolaryngology (Head and Neck) Routine 05/02/19 10:29 Consult Psychiatry Routine 05/02/19 12:54 Consult Palliative Care Routine Ordered Studies 04/30/19 18:36 US venous doppler UE RT Stat 04/30/19 20:43 CT abd pelvis IV con only Urgent CT chest w con Urgent Hospital Course (1) Mass of lateral neck: 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) Dementia -This is a patient with history of reported rapid growing right neck mass -large mass lesion in the right lower neck with extensive local invasion into the superior mediastinum, the pleural space at the right apex, several right- sided neural foramina, and the right thyroid lobe -patient had fine needle biopsy on 04/29/19 which is positive for 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 Overall, a pure lymphomatous process is favored. Core biopsy or incisional biopsy (preferred) is required for further characterization of this unusual lesion. A high grade B-cell lymphoma FISH panel is pending for hopefully additional information and will be reported" -discussed with [facility] oncologist Dr. Shin Sotelo on 05/01/19 -Dr. Carlson from [facility] ENT services asked to evaluate the patient in hospital. Patient did not give consent to Dr. Carlson for biopsy. -psychiatry consult has evaluated patient's medical decision making capacity and that patient found to not be able to make medical decisions and that it was reasonable for patient's daughter as power of business attorney to make medical descisions for him -after further discussions with patient's daughter Daughter Lorraine ([phone]) on patient's limited cooperation in regards to making the diagnosis, and of the potential side effects of radiation or chemotherapy treatments in this elderly gentleman with invasive neck cancer, hospitalist discussed about potential palliative care evaluations in case of need for hospice. -discharge to home with home hospice on 05/03/19 -Palliative care following the patient and will have POLST form signed by patient's daughter Lorraine indicating DNR/DNI, comfort measures only when discharged, trial abx, and no artificial nutrition/hydration before patient is discharge to home with home hospice services. 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 This is unchanged from the recent CT scan. -Superficial venous thrombus is noted within the cephalic vein and associated with right arm swelling -patient was started on heparin drip, and transitioned from heparin drip to Lovenox 1 mg/kg every 12 hours starting on 05/02/19 -patient to be discharged on Xarelto 15 mg twice a day for 21 days with food and starting on May 25, 2019 should take Xarelto 20 mg daily with food; discharge medication prescription sent electronically to [facility] Address: [facility] [place] [address] -patient should follow up with family medical doctor 05/05/2019 2:00 PM Provider Solomon Manrique DO at [facility] in regards to anticoagulation management. Given that patient has blood clots (thrombosis of the right internal jugular vein, the right subclavian vein, and the right axillary vein. This is unchanged from the recent CT scan. Superficial venous thrombus is noted within the cephalic vein and associated with right arm swelling), patient should be on blood thinners for at least 3 months and may likely need to life long given diagnosis of cancer (lymphoma) unless patient has other hospice care goals Hypothyroidism -continue home dose Levothyroxine 88 mcg daily History of benign prostatic hypertrophy -Continue home Cardura. 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); Thromboembolism; Hypothyroidism; Dementia Condition on Discharge: Good Activity: Resume your previous activity Non-emergency contact: Primary Care Provider Call non-emergency contact if: you have any medication questions Follow-up/Referrals: Solomon Manrique DO [Primary Care Provider] - Diet: Regular Addtl Attending Provider Instructions: -discharge to home with home hospice on 05/03/19 -Palliative care following the patient and will have POLST form signed by lópez ent's daughter Lorraine indicating DNR/DNI, comfort measures only when discharged, trial abx, and no artificial nutrition/hydration before patient is discharge to home with home hospice services. Case management to provide discussion regarding agency choice and also a SNF for back up in case the care becomes too great for them to manage at home -patient to be discharged on Xarelto 15 mg twice a day for 21 days with food and starting on May 25, 2019 should take Xarelto 20 mg daily with food; discharge medication prescription sent electronically to [facility] Address[facility] [address] [place] [address] -patient should follow up with family medical doctor 05/05/2019 2:00 PM Provider Solomon Manrique DO at [facility] in regards to anticoagulation management. Given that patient has blood clots (thrombosis of the right internal jugular vein, the right subclavian vein, and the right axillary vein. This is unchanged from the recent CT scan. Superficial venous thrombus is noted within the cephalic vein and associated with right arm swelling), patient should be on blood thinners for at least 3 months and may likely need to life long given diagnosis of cancer (lymphoma) unless patient has other hospice care goals Pending Studies at Discharge: Yes Studies:: B-cell lymphoma FISH panel is pending to be followed on [facility] pathology report of the fine needle biopsy on 04/29/19 which is positive for AGGRESSIVE MALIGNANCY WITH A CLONAL B-CELL POPULATION Stand-Alone Forms: My [facility] Medications and DC Order Prescriptions: New Xarelto 15 mg Tablet 15 mg PO BID 21 Days Qty: 42 RF: 0 Xarelto 20 mg tablet 20 mg PO DAILY 30 Days Qty: 30 RF: 0 Continued hydrocodone-acetaminophen [Lorcet (hydrocodone)] 5-325 mg tablet 1 tab PO Q6 PRN (Reason: Pain) RF: 0 doxazosin [Cardura] 1 mg tablet 1 mg PO DAILY RF: 0 levothyroxine 88 mcg tablet 88 mcg PO DAILY RF: 0 memantine [Namenda] 10 mg tablet 10 mg PO BID RF: 0 Admission Data Admit Date/Time: 04/30/19 20:43 Attending Provider: Pravin Lowe Admit Provider: Sp Martinez Primary Care Provider: Solomon Manrique Other Providers: Sp Martinez ; Shin Sotelo ; Brenda Carlson ; Emiliana Bird ; Lyn Santiago
[2019-05-03] MEDS ORDERED: RIVAROXABAN 15 MG TAB PO SCH ×2 (15:15→21:00)
== END 2019-05-03 18:55 | disposition hospice, home (50) | DRG 841 ==
LOC: ED 17:09 → 4W 20:43 → SUATTDRO 20:43 → 4W 21:16